=== PATIENT | female | born 1995 | race Two or more races ===

== ENCOUNTER 2019-07-26 14:45 | Emergency (ER) | payer OTHER ==
[~2019-07-26] VITALS: Ht 165.1 cm; Wt 95.3 kg
[2019-07-26] MEDS ORDERED: [UNRECOGNIZED DRUG - OTHER] IM (14:59)
== END 2019-07-26 17:05 | disposition home or self-care (01) ==
LOC: ER 14:45
DX: B33.8 Other specified viral diseases (principal); B96.0 Mycoplasma pneumoniae [M. pneumoniae] as the cause of diseases classified elsewhere

== ENCOUNTER 2020-06-01 00:25 | Emergency (ER) | payer OTHER ==
[~2020-06-01] VITALS: Ht 165.1 cm; Wt 95.3 kg
[~2020-06-01 00:25] MED LIST: [UNRECOGNIZED DRUG - OTHER] IM
[2020-06-01] MEDS ORDERED: IBU400 MG PO (01:44)
[2020-06-01] MEDS ORDERED: PEPCID AC20 MG PO (02:55)
== END 2020-06-01 01:37 | disposition home or self-care (01) ==
LOC: ER 00:25
DX: M94.0 Chondrocostal junction syndrome [Tietze] (principal); R07.89 Other chest pain